=== PATIENT | female | born 1980 | race Two or more races ===

== ENCOUNTER 2018-01-26 11:03 | Outpatient (CLI) | payer OTHER | END 2018-01-26 12:22 | disposition home or self-care (01) | LOC: SONOGRAMA 11:03 | DX: E04.1 Nontoxic single thyroid nodule (principal) ==

== ENCOUNTER 2020-06-28 08:52 | Outpatient (CLI) | payer OTHER | END 2020-06-28 09:00 | disposition home or self-care (01) | LOC: SONOGRAMA 08:52 | PROVIDERS: ATTEND Pathology Anatomic Pathology & Clinical Pathology | DX: D44.0 Neoplasm of uncertain behavior of thyroid gland (principal) ==

== ENCOUNTER 2022-08-21 07:00 | Day surgery (SDC) | payer OTHER | END 2022-08-21 19:35 | disposition home or self-care (01) | LOC: CIR.AMB 07:00 | PROVIDERS: ATTEND Obstetrics & Gynecology Gynecologic Oncology | DX: C50.919 Malignant neoplasm of unspecified site of unspecified female breast (principal); Z15.01 Genetic susceptibility to malignant neoplasm of breast; Z88.6 Allergy status to analgesic agent; I95.9 Hypotension, unspecified; F17.210 Nicotine dependence, cigarettes, uncomplicated; Z20.822 Contact with and (suspected) exposure to COVID-19 ==

== ENCOUNTER 2023-03-03 09:24 | Emergency (ER) | payer OTHER ==
[~2023-03-03] VITALS: Ht 165.1 cm; Wt 71.7 kg
[2023-03-03] MEDS ORDERED: LEXAPRO5 MG PO (09:43)
[2023-03-03] MEDS ORDERED: CLONAZEPAM0.5 MG PO (09:43)
[2023-03-03 11:27] LABS: HEMATOCRIT 40.1 % (36.0-45.00); HEMOGLOBIN 13.7 g/dL (12.0-15.00); MEAN CELL VOLUME 92.6 fL (80.00-100.00); MEAN CORPUSCULAR HEMOGLOBIN 31.8 pg (27.00-32.0); MEAN CORPUSCULAR HGB CONC 34.3 g/dl (32.0-36.0); PH,URINE 6.5 (5.0-8.0); PLATELET COUNT 295 K/uL (150-450); RED BLOOD COUNT 4.33 M/uL (4.00-6.00); RED CELL DISTRIBUTION WIDTH 13.1 % (11.5-14.5); URINE APPEARANCE Cloudy; URINE BILIRRUBIN Negative (NEGATIVE); URINE BLOOD Moderate; URINE COLOR Yellow; URINE GLUCOSE Negative (NEGATIVE); URINE LEUKOCYTE Large; URINE NITRATE Negative; URINE PROTEIN 30 (NEGATIVE); URINE UROBILINOGEN 0.2 E.U./dl
[2023-03-03 11:30] LABS: URINE BACTERIA 2109.2 uL (0.0-1933); URINE EPITHELIAL CELLS 35.5 uL (0.0-38.8); URINE RBC 14.9 uL (0.0-20.8); URINE WBC 1360.2 uL (0.0-23.2)
[2023-03-03 11:55] LABS: ALBUMIN 3.6 gm/dL (3.4-5.0); BILIRUBIN TOTAL 0.65 mg/dL (0.3-1.2); CALCIUM 8.7 mg/dL (8.5-10.1); CREATININE SERUM 0.67 mg/dL (0.55-1.02); GFR 96.52; POTASSIUM 3.94 mEq/L (3.5-5.1); TOTAL PROTEIN 7.6 gm/dL (6.4-8.2)
== END 2023-03-03 13:36 | disposition home or self-care (01) ==
LOC: ER 09:24
PROVIDERS: Emergency Medicine
DX: N39.0 Urinary tract infection, site not specified (principal); R10.2 Pelvic and perineal pain; Z88.6 Allergy status to analgesic agent; Q63.2 Ectopic kidney